=== PATIENT | male | born 1955 | race American Indian/Alaskan Native ===

== ENCOUNTER 2022-03-05 22:09 | Emergency (ER) | payer SELFPAY | END 2022-03-07 05:46 | disposition left against medical advice (07) | LOC: ED 22:09 | DX: S09.93XA Unspecified injury of face, initial encounter (principal); Z53.21 Procedure and treatment not carried out due to patient leaving prior to being seen by health care provider; Y04.8XXA Assault by other bodily force, initial encounter; Y93.89 Activity, other specified; Y92.89 Other specified places as the place of occurrence of the external cause; Y99.8 Other external cause status ==